=== PATIENT | female | born 1990 | race Caucasian/White ===

== ENCOUNTER 2020-04-02 07:08 | Outpatient (REF) | payer OTHER, SELFPAY ==
[2020-04-02 07:25] LABS: COVID-19 Test Positive (Negative)
== END 2020-04-02 07:09 | disposition home or self-care (01) ==
LOC: HO.LAB 07:08
PROVIDERS: Visit Provider Internal Medicine
DX: Z20.828 Contact with and (suspected) exposure to other viral communicable diseases (principal)
CPT/HCPCS: 87635

== ENCOUNTER 2020-05-23 14:14 | Outpatient (REF) | payer OTHER, SELFPAY ==
[2020-05-23 14:59] LABS: COVID-19 Test Negative (Negative)
== END 2020-05-23 14:15 | disposition home or self-care (01) ==
LOC: HO.EMPCOV 14:14
PROVIDERS: Visit Provider Internal Medicine
DX: Z20.828 Contact with and (suspected) exposure to other viral communicable diseases (principal)
CPT/HCPCS: 87635; C9803

== ENCOUNTER 2020-11-17 08:37 | Outpatient (REF) | payer OTHER, SELFPAY ==
[2020-11-17 09:09] LABS: IDNOW Serial# 9DD0AD1C; Strep A Nucleic Acid Negative (Negative)
== END 2020-11-17 08:38 | disposition home or self-care (01) ==
LOC: HO.LAB 08:37
PROVIDERS: PCP Nurse Practitioner Family; Visit Provider Nurse Practitioner Family
DX: J02.9 Acute pharyngitis, unspecified (principal)
CPT/HCPCS: 36415; 87651